=== PATIENT | female | born 1975 | race Caucasian/White ===

== ENCOUNTER 2018-02-09 14:29 | Emergency (ER) | payer BC ==
[~2018-02-09] VITALS: Ht 172.7 cm; Wt 72.6 kg
[~2018-02-09 14:29] MED LIST: PROTONIX40 M1 PO; PROTONIX40 MG PO; VENTOLIN HFA 1818 GM; VITAMIN D1000 UNI1 PO
[2018-02-09 15:03] LABS: ABSOLUTE BASOPHILS 0.1 thou/uL (0.0-0.2); ABSOLUTE EOSINOPHILS 0.2 thou/uL (0.0-0.7); ABSOLUTE LYMPHOCYTES 2.4 thou/uL (0.8-5.3); ABSOLUTE MONOCYTES 0.5 thou/uL (0.0-1.2); BASOPHILS 0.7 %; EOSINOPHILS 2.7 %; HEMATOCRIT 40.5 % (37.0-47.0); HEMOGLOBIN 13.4 gm/dL (12.0-15.0); LYMPHOCYTES 29.7 %; MCH 28.2 pg (26.0-34.0); MCHC 33.2 g/dL (28.0-37.0); MCV 85.1 fL (80.0-100.0); MONOCYTES 6.6 %; MPV 8.6 fl. (7.2-11.1); NUCLEATED RBCS 0 /100WBC; PLATELET COUNT* 232 thou/uL (150-400); POLYS 60.3 %; RBC 4.76 mil/uL (4.20-5.00); RDW-CV 14.9 % (10.5-14.5); WBC 8.2 thou/uL (4.0-11.0)
[2018-02-09 15:14] LABS: APTT 28.3 Seconds (25.0-31.3)
[2018-02-09 15:16] LABS: ANION GAP 12 mmol/L (7-16); BUN 8 mg/dL (7-18); CALCIUM 8.9 mg/dL (8.5-10.1); CHLORIDE 104 mmol/L (98-107); CO2 23 mmol/L (21-32); CREATININE 0.9 mg/dL (0.6-1.3); GLUCOSE 92 mg/dL (70-99); POTASSIUM 3.6 mmol/L (3.5-5.1); SODIUM 139 mmol/L (136-145)
[2018-02-09 15:29] LABS: ALBUMIN 3.7 g/dL (3.4-5.0); ALKALINE PHOSPHATASE 62 U/L (46-116); CK-MB MASS < 0.5 ng/mL (<0.5-3.6); LIPASE 117 U/L (73-393); MAGNESIUM 2.2 mg/dL (1.8-2.4); NT-PRO BRAIN NAT PEPTIDE 9 pg/mL (<300); SGOT 19 U/L (15-37); SGPT 27 U/L (30-65); TOTAL BILIRUBIN 0.5 mg/dL (<0.1-1.0); TOTAL PROTEIN 7.4 g/dL (6.4-8.2); TROPONIN-I LEVEL <0.06 ng/mL (<0.06)
[2018-02-09 15:50] VITALS: BP 105/67
--- NOTE | 2018-02-10 12:06 | EKG ---
[place] [address] ELECTROCARDIOGRAM REPORT Name: AGUSTIN SIMS Room: [facility]#: [id number] Admission: 02/09/18 Attend Phys: Discharge: 02/09/18 Date of : 77 Report #: [id number] THIS REPORT FOR: //name// [facility] ED Test Date: 2018-02-09 Test Time: 14:35:03 Pat Name: AGUSTIN SIMS Department: Room: Gender: F [employer]: MICHELLE : 1975 Requested By: Ralf Amato Order Number: [id number] MD: Lion Max Measurements Intervals [place] Rate: 64 P: 15 MN: 117 QRS: 54 QRSD: 89 T: 62 QT: 414 QTc: 427 Interpretive Statements Sinus rhythm Borderline short MN interval Compared to ECG 07/03/2017 07:38:22 No significant changes Electronically Signed On 02-10-2018 12:05:54 CDT by Lion Max [email or web address] <ELECTRONICALLY SIGNED> By: Carmen Max MD, [facility] 02/10/18 1205 1435 1435 Carmen Max MD, FACC /EPI
== END 2018-02-09 15:51 | disposition home or self-care (01) ==
LOC: M.ERS 14:29
PROVIDERS: Family Medicine
DX: R07.89 Other chest pain (principal); K21.9 Gastro-esophageal reflux disease without esophagitis; J45.909 Unspecified asthma, uncomplicated; Z88.1 Allergy status to other antibiotic agents; Z88.0 Allergy status to penicillin; Z88.6 Allergy status to analgesic agent